=== PATIENT | female | born 1940 | race Caucasian/White ===

== ENCOUNTER → 2025-01-18 14:12 | Outpatient (REF) | payer OTHER, SELFPAY | LOC: MRI 14:12 | PROVIDERS: ATTENDING PHYSICIAN Internal Medicine; FAMILY PHYSICIAN Family Medicine | DX: Z95.0 Presence of cardiac pacemaker (principal); M54.16 Radiculopathy, lumbar region | CPT/HCPCS: 71046; 72148 ==